=== PATIENT | male | born 1950 | race Hispanic/Latino ===

== ENCOUNTER → 2017-09-01 | Outpatient (CLI) | payer OTHER | END | disposition home or self-care (01) | LOC: OIH 10:11 | PROVIDERS: ATTEND Family Medicine | DX: J44.9 Chronic obstructive pulmonary disease, unspecified (principal); M47.894 Other spondylosis, thoracic region; Z87.891 Personal history of nicotine dependence | CPT/HCPCS: 71046 ==

== ENCOUNTER 2018-01-24 07:36 | Emergency (ER) | payer OTHER ==
[2018-01-24] MEDS ORDERED: KETOROLAC TROMETHAMINE 30MG/ML ONE (08:08)
== END 2018-01-24 10:07 | disposition home or self-care (01) ==
LOC: EDH 07:36
DX: S22.31XA Fracture of one rib, right side, initial encounter for closed fracture (principal); W18.39XA Other fall on same level, initial encounter; Y93.89 Activity, other specified; Y92.89 Other specified places as the place of occurrence of the external cause; Y99.8 Other external cause status
CPT/HCPCS: 71100; 72170; 96372; 99284; J1885

== ENCOUNTER 2025-05-16 15:40 | Emergency (ER) | payer OTHER ==
[~2025-05-16] VITALS: Ht 170.2 cm; Wt 68.0 kg
[2025-05-16 15:56] VITALS: BP 130/70; PULSE 76; RESP 16; TEMP 98; O2SAT 98
[2025-05-16] MEDS: LIDOCAINE HCL 1% 20 ML VIAL INJ STA (16:14)
--- NOTE | 2025-05-16 16:32 | ERN ---
ED Note History of Present Illness Stated Complaint: RT THUMB LACERATION Chief Complaint: Laceration/Avulsion Time Seen by MD: 15:42 Time Seen by Midlevel: 15:45 Dictation: 74-year-old male coming in with complaints of a laceration to the right thumb t hat happened just prior to arrival. Patient states he was closing a pocket knife when he got caught in the blade. There is a avulsion to the tip of the thumb of the right hand. No other injuries patient does not know if he is up-to-date with a tetanus. Denies any other medical problems. Allergies: Coded Allergies: No Known Allergies (Unverified Allergy, Unknown, 05/16/25) Past Medical History Past Medical History: High Cholesterol Surgical History: None Review of System Dictation Constitutional: Negative for fever,chills, and weight loss Eyes: Negative for injury, pain,redness, and discharge ENT: Negative for injury,pain or swelling Cardiovascular: Negative for chest pain, palpitations, and edema Respiratory: Negative for shortness of breath, cough, and wheezing, Abdomen/GI: Negative for abdominal pain, nausea, vomiting, diarrhea, and constipation Back: Negative for injury and pain : Negative for injury, bleeding and discharge MS/Extremity: Negative for injury and deformity Skin: Negative for rash, and discoloration, laceration to the thumb Neuro: Negative for headache, weakness, numbness, tingling, and seizure Psych: Negative for suicide ideation, homicidal ideation, and hallucinations Review of Systems: was completed Initial Vital Sign VS Vital Signs Date Time Temp Pulse Resp B/P (MAP) Pulse Ox O2 Delivery O2 Flow Rate FiO2 05/16/25 15:42 98.1 79 20 131/71 97 Room Air 0 05/16/25 15:56 21 Physical Exam Dictation General: awake, alert, NAD Head/Face: Normocephalic, atraumatic Eyes: PERRL, EOMI, vision at baseline ENT: oral cavity clear, TMs clear, no signs of infection Neck: Trachea midline, supple, no nuchal rigidity Cardiovascular: RRR, normal S1/S2, No MRGs, no JVD Respiratory: CTAB, no respiratory distress, No rales or wheezes Abdomen: Soft, non-tender, non-distended, normal bowel sounds, no guarding or rebound. Skin: Warm, dry, normal turgor, no rash, avulsion noted to the right thumb in a half [place] shaped MS/Extremity: Pulses equal, no cyanosis, neurovascular intact, FROM Neuro: COAx4, GCS 15, strength 5/5, CN 2-12 intact, normal cerebellar exam, normal gait, Psych: Normal behavior, mood, and affect normal ED Course ED Course Orders Procedure Category Date Status Time Lidocaine Hcl 1% 20ml PHA 05/16/25 Complete Vial (Lidocaine Hc 15:45 Tetanus,Diphtheria PHA 05/16/25 Complete Tox [Adult] (Diphther 16:00 *Nursing CPOE 05/16/25 Transmitted Communication: 15:46 Current Medications Medications (Trade) Dose Ordered Sig/Jan Route PRN Reason Start Time Stop Time Status Last Admin Dose Admin Lidocaine HCl (Lidocaine HCl 1% 20ml Vial) ONCE STAT INJ 05/16/25 15:45 05/16/25 15:47 DC 05/16/25 16:14 Tetanus/ Diphtheria Toxoids Adsorbed (DiphthERIA-teTANUS TOXOID [ADULT]/ DECAVAC) 0.5 ml ONCE ONCE IM 05/16/25 16:00 05/16/25 16:01 DC 05/16/25 16:14 Vital Signs Date Time Temp Pulse Resp B/P (MAP) Pulse Ox O2 Delivery O2 Flow Rate FiO2 05/16/25 15:56 98.1 76 16 130/70 98 Room Air* 0 21 05/16/25 15:42 98.1 79 20 131/71 97 Room Air 0 Medical Decision Making MDM MDM: 74-year-old male coming in with complaints of a laceration to the right t humb that happened just prior to arrival. Patient states he was closing a pocket knife when he got caught in the blade. There is a avulsion to the tip of the thumb of the right hand. No other injuries patient does not know if he is up-to-date with a tetanus. Denies any other medical problems. See laceration repair note. Discussed with the patient on when to return back to the ER. NAD. They did not hospital sooner if you notice any signs of infection. Patient verbalized understanding, answered all questions. Differential diagnosis: Avulsion, partial amputation, arterial damage, tendon involvement in the laceration Rationale: Tests considered and ordered secondary to shared decision making include: Previous outside records reviewed: Old ER visits. Risk of complication and/or morbidity or mortality of patient management: None Medications-Per medication reconciliation Need for hospitalization: Patient does not meet criteria for hospitalization. Need for emergency major/minor surgery: No There are no social concerns with this patient. Prescription drug management Prescriptions will include symptomatic care Patient's prior external medical records from other ER visits were reviewed by me as indicated. Prior testing and results from previous visits were reviewed. Prior tests were taken into account with medical decision making and resource utilization, independent historian/historians were used to obtain complete medical history. I independently interpreted the test that were performed, results were reviewed by me and considered findings on radiology if ordered. Medical management and examination interpretation discussions were had by me with other qualified healthcare professionals as indicated for the patient's care. Procedure Wound Location: upper extremity (Right thumb) Wound's Depth, Shape: superficial Wound Explored: clean Irrigated w/ Saline (ccs): 15 Anesthesia: 1% Lidocaine Volume Anesthetic (ccs): 4 Wound Debrided: minimal Wound Repaired With: sutures Suture Size/Type: 4:0 Number of Sutures: 4 DX & DISP Disposition: Discharge Departure Impression: Primary Impression: Thumb laceration Condition: Stable Additional Instructions: Return in seven days to remove the sutures. Return sooner if you notice any signs of infection. Follow up with your PCP in 1-2 days. Referrals: JORGE ROCHA MD (PCP) Time of Disposition: 16:31 I have reviewed the case, and I agree with, Diagnosis and Plan MADDI CORNEJO NP May 16, 2025 16:32
--- NOTE | 2025-05-16 16:32 | NUR ---
4 SUTURES PLACED WOUND CLEAN DRY AND INTACT WOUND BANDAGED PER NEGATIVE TURNER INSTRUCTION
== END 2025-05-16 16:36 | disposition home or self-care (01) ==
LOC: EDH 15:40
DX: S61.011A Laceration without foreign body of right thumb without damage to nail, initial encounter (principal); E78.00 Pure hypercholesterolemia, unspecified; W26.0XXA Contact with knife, initial encounter; Y93.9 Activity, unspecified; Y92.89 Other specified places as the place of occurrence of the external cause; Y99.8 Other external cause status
CPT/HCPCS: 12002; 90471; 90714; 99283

== ENCOUNTER 2025-05-23 08:14 | Emergency (ER) | payer OTHER ==
[~2025-05-23] VITALS: Ht 170.2 cm; Wt 68.0 kg
[2025-05-23 08:15] VITALS: TEMP 97.8
--- NOTE | 2025-05-23 10:02 | ERN ---
ED Note History of Present Illness Stated Complaint: SUTURE REMOVAL Chief Complaint: Wound Recheck/Suture Removal Time Seen by MD: 08:56 Dictation: 74-year-old male presenting to the emergency department for suture removal of right thumb x4 sutures one week ago healing well no complications Allergies: Coded Allergies: No Known Allergies (Unverified Allergy, Unknown, 05/16/25) Past Medical History Past Medical History: High Cholesterol Surgical History: None Review of System Dictation Constitutional: Negative for fever,chills, and weight loss : Negative for injury, bleeding and discharge MS/Extremity: Negative for injury and deformity Skin: Per HPI Neuro: Negative for headache, weakness, numbness, tingling, and seizure Initial Vital Sign VS Vital Signs Date Time Temp Pulse Resp B/P (MAP) Pulse Ox O2 Delivery O2 Flow Rate FiO2 05/23/25 08:15 97.9 53 16 140/62 98 Room Air Physical Exam Dictation General: awake, alert, NAD Head/Face: Normocephalic, atraumatic Cardiovascular: RRR, normal S1/S2, No MRGs, no JVD Respiratory: CTAB, no respiratory distress, No rales or wheezes Abdomen: Soft, non-tender, non-distended, normal bowel sounds, no guarding or rebound. Skin: Warm, dry, normal turgor, right thumb well healed four sutures MS/Extremity: Pulses equal, no cyanosis, neurovascular intact, FROM Neuro: COAx4, GCS 15, strength 5/5, CN 2-12 intact, normal cerebellar exam, normal gait, Psych: Normal behavior, mood, and affect normal ED Course ED Course Vital Signs Date Time Temp Pulse Resp B/P (MAP) Pulse Ox O2 Delivery O2 Flow Rate FiO2 05/23/25 08:15 97.9 53 16 140/62 98 Room Air Medical Decision Making MDM MDM: Differential diagnosis: Rationale: Tests considered and ordered secondary to shared decision making include: Previous outside records reviewed: Old ER visits. Risk of complication and/or morbidity or mortality of patient management: None Medications-Per medication reconciliation Need for hospitalization: Patient does not meet criteria for hospitalization. Need for emergency major/minor surgery: No There are no social concerns with this patient. Prescription drug management Prescriptions will include symptomatic care Patient's prior external medical records from other ER visits were reviewed by me as indicated. Prior testing and results from previous visits were reviewed. Prior tests were taken into account with medical decision making and resource utilization, independent historian/historians were used to obtain complete medical history. I independently interpreted the test that were performed, results were reviewed by me and considered findings on radiology if ordered. Medical management and examination interpretation discussions were had by me with other qualified healthcare professionals as indicated for the patient's care. Sutures removed discharge DX & DISP Disposition: Discharge Departure Impression: Primary Impression: Encounter for removal of sutures Condition: Stable Referrals: JORGE ROCHA MD (PCP) CT MARTELL MD May 23, 2025 10:02
--- NOTE | 2025-05-23 10:18 | NUR ---
PT JUST PLACED IN HALLWAY A 1
[2025-05-23 10:44] VITALS: BP 140/73; PULSE 52; RESP 16; O2SAT 99
== END 2025-05-23 10:40 | disposition home or self-care (01) ==
LOC: EDH 08:14
DX: S61.021D Laceration with foreign body of right thumb without damage to nail, subsequent encounter (principal); E78.00 Pure hypercholesterolemia, unspecified; Z48.02 Encounter for removal of sutures; X58.XXXD Exposure to other specified factors, subsequent encounter
CPT/HCPCS: 99281; 99282